=== PATIENT | female | born 1960 | race Caucasian/White ===

== ENCOUNTER → 2017-03-10 | Outpatient (CLI) | payer BC ==
[~2017-03-10] MED LIST: ADVIL200 M1 PO; ALLEGRA ALLERG180 MG PO; FAMOTIDINE PO; FLONASE 0.05% N16 G1 INH; FLOVENT DISKUS50 MCG; JANUMET XR 1001 EACH PO
--- NOTE | ~2017-03-10 | XA60 ---
[facility] A Service of [facility] & [facility] RADIOLOGY TEXT RESULTS PATIENT: GERMÁN VILLARREAL LOCATION: CIVR : 64 UNIT #: [id number] AGE: [address]: COLETTE JOLLY PA-C SEX: F ORDER DR: [id number] [facility] [address] [place], [place] [address] [id number] O MR#: [id number] Acc #: [id number] NAME: GERMÁN VILLARREAL : 1960 SEX: F STUDY DATE/TIME: 03/10/2017 10:52 [facility] ROOM: STUDY DESCRIPTION: XA BX Perc Liver Attending Physician: Colette Jolly Pa-C Referring Physician: Colette Jolly Pa-C Ordering Physician: Francisco Hunt M.D. Primary Care Physician: Vikash Gates M.D. MEDICAL IMAGING REPORT This report is preliminary unless electronic signature is present EXAM Ultrasound-guided liver biopsy. HISTORY Elevated liver enzymes. Procedure, attendant risks and options were discussed with Ms. Villarreal. She understands and wishes to proceed. The patient was examined sonographically and an appropriate site was chosen. PROCEDURE The skin was marked and prepped with chlorhexidine solution and sterilely draped. Maximal sterile barrier technique was utilized. The patient received conscious sedation consisting of IV Versed and fentanyl, and was monitored by the IR nurse during the entire procedure. Total sedation time of approximately 15 minutes. A 17-gauge guide needle was inserted. Two 18-gauge core specimens were obtained and placed in formalin. [place] removed. Hemostasis achieved. The patient was placed on her right side and will be monitored for 4 hours prior to discharge. A permanent ultrasound image was captured. CONCLUSION Successful ultrasound-guided biopsy of the right lobe of the liver. Dictated by... Moises Hoover M.D. THIS IS AN ELECTRONICALLY VERIFIED REPORT Moiess Hoover M.D. at 03/10/2017 5:13 PM EBONI/vijay TD: 03/10/2017 15:57 [facility] A Service of [facility] & [facility] RADIOLOGY TEXT RESULTS PATIENT: GERMÁN VILLARREAL LOCATION: [facility] #: [id number] : 64 UNIT #: [id number] AGE: [address]: COLETTE JOLLY PA-C SEX: F ORDER DR: DOUGLAS #: [id number] MEDICAL IMAGING REPORT Page 1 of 1 COPY
[2017-03-10 09:14] LABS: HEMATOCRIT 39.7 % (35.0-45.0); HEMOGLOBIN 13.1 gm/dL (12.0-16.0); MEAN CELL VOLUME 88.5 FL (83-96); MEAN CORPUSCULAR HEMOGLOBIN 29.1 PG (28-34); MEAN CORPUSCULAR HGB CONC 32.9 g/dL (30-36); MEAN PLATELET VOLUME 8.6 FL (6.5-11.5); RED BLOOD COUNT 4.49 X10e (3.90-5.30)
[2017-03-10 09:20] LABS: INR 1.1; PROTHROMBIN TIME (PATIENT) 11.1 SECONDS (9.6-11.5)
== END | disposition home or self-care (01) ==
LOC: CIVR 08:38
PROVIDERS: Physician Assistant
DX: K75.9 Inflammatory liver disease, unspecified (principal); K74.0 Hepatic fibrosis; K74.69 Other cirrhosis of liver; R94.5 Abnormal results of liver function studies; R93.2 Abnormal findings on diagnostic imaging of liver and biliary tract; K90.0 Celiac disease; K80.20 Calculus of gallbladder without cholecystitis without obstruction; Z88.5 Allergy status to narcotic agent; Z88.8 Allergy status to other drugs, medicaments and biological substances
CPT/HCPCS: 36415; 76942; 85027; 85610; 85730; 88307; 88313; J2250; J2405; J3010